=== PATIENT | male | born 1995 | race Caucasian/White ===

== ENCOUNTER 2023-04-04 15:01 | Outpatient (RCR) | payer OTHER | END 2023-04-06 | LOC: WSOH | DX: S46.911D Strain of unspecified muscle, fascia and tendon at shoulder and upper arm level, right arm, subsequent encounter (principal); Y99.0 Civilian activity done for income or pay ==

== ENCOUNTER 2023-04-14 14:43 | Outpatient (RCR) | payer OTHER | END 2023-05-07 | LOC: WSOH | DX: S46.911D Strain of unspecified muscle, fascia and tendon at shoulder and upper arm level, right arm, subsequent encounter (principal); Y99.0 Civilian activity done for income or pay ==